=== PATIENT | female | born 1960 | race Caucasian/White ===

== ENCOUNTER 2023-04-12 18:48 | Emergency (ER) | payer OTHER, SELFPAY ==
[2023-04-12 19:19] VITALS: BP 142/87; PULSE 76; RESP 18; TEMP 36.7; O2SAT 99
--- NOTE | 2023-04-12 21:33 | ED_ITS ---
HPI - General Adult General Time Seen by Provider: 21:33 Date Seen: 04/12/23 Chief complaint: Insect Bite Stated complaint: l. arm rash Time Seen by Provider: 04/12/23 21:33 Source: patient and RN notes reviewed Mode of arrival: ambulatory Limitations: no limitations History of Present Illness HPI narrative: Patient is a 62-year-old female coming in with concern of cellulitis on her posterior left arm. 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 She states she was wearing a long sleeve shirt. The arm has increasingly spread in redness today, is more painful. I do see she has itching at it some too. She feels that it is more swollen, almost has an orange peel type feeling to the skin. She has felt more tired but not fluid sonia nor any fevers or chills. She does not have any significant history of anaphylaxis or reactions to bug bites. She is allergic to ceftriaxone and penicillins. She is not prone to cellulitis, no autoimmune disorders or immune compromised state. She is ultimately concerned that this is a secondary infection with cellulitis. Related Data Allergies Allergy/AdvReac Type Severity Reaction Status Date / Time ceftriaxone Allergy Severe Anaphylaxis Verified 04/12/23 19:18 Penicillins Allergy Intermediate Verified 04/12/23 19:18 Review of Systems Narrative: As per HPI. Exam Const: Vital Signs, click to edit/add: Vital Signs - 24 hr 04/12/23 19:19 Temperature 98.0 F Pulse Rate [Left P ulse Oximeter] 76 Respiratory Rate 18 Blood Pressure [Ri ght Upper Arm] 142/87 H Pulse Oximetry 99 Oxygen Delivery Me thod Room Air This is a 62-year-old female that is alert interactive no apparent distress, speech is normal. On the medial posterior aspect of her upper arm there is significant erythema and swelling. It is warm, there is no fluctuant area. She has no axillary masses or adenopathy that I can see. Still is fully mobile with this arm. Lungs are clear, good air entry, no wheezing or crackles. CV regular rate and rhythm no murmur, normal S1 and S2. Documenting provider has reviewed patient's vital signs: yes Course Course ED Course: Patient will get an oral dose of Zyrtec here. Will check and see if we have doxycycline for discharge in the machine. 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 Did review with patient my a thoughts on bug bites of this nature. They do put chemicals/venom within our body and some people will get a significant localized reaction. This is not technically allergic reaction. When symptoms are of her nature where she notes rapid swelling today, it is most difficult for me to say that there isn't a component of cellulitis. Thus, I typically will treat both with the antihistamine affects of clear to under Zyrtec as well as coverage with antibiotics. She would like antibiotics given. She wonders about IV antib iotics. She is quite stable, I think a trial of oral antibiotics would be sufficient. She has no history of MRSA. I think we could use doxycycline which does have good availability. Reevaluation(s) Time of Reevaluation #1: 22:27 Reevaluation #1: Checked on patient, she has gotten her Zyrtec. Reviewed with her that we do have doxycycline in [facility] and have prescribed a 10 day course. Reviewed with her that the bio availability is excellent of doxycycline, did specifically look this up. There are some food in eating restrictions with it but if observed, has great by availability orally. Will discharge to home at this time. Vital Signs Vital signs: Initial Vital Signs Temperature 98.0 F 04/12/23 19:19 Temperature Source Temporal Artery Scan 04/12/23 19:19 Pulse Rate 76 04/12/23 19:19 Pulse Rhythm Regular 04/12/23 19:19 Respiratory Rate 18 04/12/23 19:19 Blood Pressure 142/87 H 04/12/23 19:19 Blood Pressure Mean 105 04/12/23 19:19 Blood Pressure Position Sitting 04/12/23 19:19 Pulse Oximetry 99 04/12/23 19:19 Oxygen Delivery Method Room Air 04/12/23 19:19 Vital Signs Temperature 98.0 F 04/12/23 19:19 Pulse Rate 76 04/12/23 19:19 Respiratory Rate 18 04/12/23 19:19 Blood Pressure 142/87 H 04/12/23 19:19 Pulse Oximetry 99 04/12/23 19:19 Oxygen Delivery Method Room Air 04/12/23 19:19 Temperature 98.0 F 04/12/23 19:19 Pulse Rate 76 04/12/23 19:19 Respiratory Rate 18 04/12/23 19:19 Blood Pressure 142/87 H 04/12/23 19:19 Pulse Oximetry 99 04/12/23 19:19 Oxygen Delivery Method Room Air 04/12/23 19:19 Discharge Plan Discharge Clinical Impression: Cellulitis of arm, left, Insect bite Patient Disposition: Home, Self-Care Condition: Stable Instructions: Cellulitis (ED), Insect Bite or Sting (ED) Additional Instructions: Start doxycycline and take as prescribed. Do recommend taking Zyrtec or Claritin once to twice daily. With the acute swelling, Zyrtec and Claritin technically can be taken twice a day without any problem. Do recommend using ice to this area since there was an underlying insect bite. If you develop fevers, rapid worsening of the area or have further concerns, do recommend re- evaluation. Activity Level: No Restrictions Discharge Diet: Regular Follow Up/Referrals: Kriss Smart PA-C [Primary Care Provider] - Stand Alone Forms: [facility] Info Instructions
[2023-04-12] MEDS: CETIRIZINE HCL 10 MG TABLET PO (22:13)
== END 2023-04-12 22:35 | disposition home or self-care (01) ==
PROVIDERS: Emergency Provider Family Medicine; PCP Internal Medicine
DX: L03.114 Cellulitis of left upper limb (principal)
CPT/HCPCS: 99283; A9270